=== PATIENT | female | born 1945 | race Caucasian/White ===

== ENCOUNTER 2020-08-06 16:09 | Emergency (ER) | payer MEDICARE, MEDICAID ==
[~2020-08-06] VITALS: Ht 162.6 cm; Wt 98.0 kg
[~2020-08-06 16:09] MED LIST: ACET650S12 PR; AMIO200T42 PO; CEFT1VIA13 IM; CIPR500T87 PO; DOCU240C53 PO; LEVE500T53 PO; LEVO75TA5 PO; METH125V16 IM; ONDA4TAB7 PO; SIMV20TA19 PO; SPIR25TA5 PO; WARF2TAB PO
--- NOTE | 2020-08-06 16:46 | NUR ---
PT UNCOOPERATIVE WITH ASSESMENT. PT BATTING THIS RN HAND AWAY AND SHOUTING "THIS IS RIDICULOUS" DURING PHYSICAL ASSESSMENT.
[2020-08-06] MEDS ORDERED: WARF3TAB52 PO (16:59)
--- NOTE | 2020-08-06 17:03 | NUR ---
PT SITTING UP IN BED. NAD, VSS. PT DENIES NEEDS AT THIS TIME. FALL PRECAUTIONS IN PLACE, CALL LIGHT WITHIN REACH.
[2020-08-06] MEDS ORDERED: FAMO-79 PO (17:11)
[2020-08-06] MEDS ORDERED: LEVE500T22 PO (17:11)
[2020-08-06] MEDS ORDERED: ASCO500T8 PO (17:11)
[2020-08-06] MEDS ORDERED: CHOL10003 PO (17:11)
[2020-08-06] MEDS ORDERED: SERT100T PO (17:11)
[2020-08-06] MEDS ORDERED: ZINC PO (17:11)
[2020-08-06] MEDS ORDERED: ACET325T14 PO (17:11)
--- NOTE | 2020-08-06 18:00 | NUR ---
PT SITTING UPRIGHT IN BED PLAYING WATCHING TV. PT PROVIDED A PILLOW FOR HER RIGHT ARM PER REQUEST. PT DENIES ANY NEEDS AT THIS TIME AND HAS BECOME MORE COOPERATIVE WITH STAFF. CALL LIGHT WITHIN REACH AND FALL PRECAUTIONS IN PLACE. WILL CONTINUE TO MONITOR.
[2020-08-06 18:10] LABS: BASOPHILS # (AUTO) 0.02 x10^3/uL (0-0.1); BASOPHILS % (AUTO) 0 % (0-1); EOSINOPHILS # (AUTO) 0.24 x10^3/uL (0-0.4); EOSINOPHILS % (AUTO) 4 % (1-7); LYMPHOCYTES # (AUTO) 0.85 x10^3/uL (1-3.4); LYMPHOCYTES % (AUTO) 14 % (22-44); MD NO; MEAN CORPUSCULAR HEMOGLOBIN 30.8 pg (27.0-34.8); MEAN PLATELET VOLUME 9.2 fL (7.4-10.4); MONOCYTES # (AUTO) 0.86 x10^3/uL (0.2-0.8); MONOCYTES % (AUTO) 14 % (2-9); NEUTROPHILS # (AUTO) 4.31 x10^3/uL (1.8-6.8); NEUTROPHILS % (AUTO) 69 % (42-75); PLATELET COUNT 177 x10^3/uL (130-400); RED BLOOD COUNT 4.95 x10^6/uL (3.82-5.3); RED CELL DISTRIBUTION WIDTH 15.2 % (9.6-15.2)
[2020-08-06 18:18] LABS: ALANINE AMINOTRANSFERASE 34 U/L (12-78); ALBUMIN 2.7 g/dL (3.4-5.0); ANION GAP 5 mmol/L (5-15); CALCIUM 8.6 mg/dL (8.5-10.1); CHLORIDE 105 mmol/L (98-107); CREATININE 0.85 mg/dL (0.55-1.02)
[2020-08-06 18:25] LABS: ALKALINE PHOSPHATASE 85 U/L (45-117); BILIRUBIN,TOTAL 0.3 mg/dL (0.2-1.0); C-REACTIVE PROTEIN, QUANT 2.23 mg/dL (0.02-0.49); TOTAL PROTEIN 7.2 g/dL (6.4-8.2)
--- NOTE | 2020-08-06 18:55 | NUR ---
BEDSIDE REPORT GIVEN TO ARRON FOOTE.
--- NOTE | 2020-08-06 20:20 | NUR ---
PT WAS DISCHARGED PT PROVIDER TO BE SENT BACK [facility]. ANASTACIO CALLED BY UN[facility] DIGESTER OPERATOR WHO ACCEPTED PT TO COME BACK TO THEIR FACILITY. WITH TRANSPORTATION ARRANGED AFTER
[2020-08-06 20:32] VITALS: BP 135/52
--- NOTE | 2020-08-06 22:48 | NUR ---
RN RECIEVED CALL FROM ANASTACIO NURSE SAYING "THAT THEY DID NOT KNOW THAT PT STILL HAD A PENDING COVID RESULT AND THAT THEY ARE IN COVID MODE AND THAT PT WAS SENT OUT TO GET CLEARED AND ASKED IF WE CAN JUST KEEP PT OVERNIGHT" RN EXPLAINED THAT PT CAME TO ER WITHOUT ANY COVID SYMTOMS AND FACILITY RN SAID "THAT PT HAD A FEVER THIS MORNING AND THAT HER B/P IS HIGH AND WE SHOULD KEEP HER" ANASTACIO FOOTE KEPT TRYING TO CHANGE STORY TO GET US TO KEEP PT OVERNIGHT. RN HANDED PHONE TO [facility]HE AND PROVIDER NOTIFIED. ANASTACIO FOOTE AGREED TO KEEP PT AND PUT PT IN ONE OF THEIR ISOLATION ROOMS
== END 2020-08-06 22:03 | disposition home or self-care (01) ==
LOC: ED 16:39
DX: U07.1 COVID-19 (principal); R50.9 Fever, unspecified; I48.91 Unspecified atrial fibrillation; J44.9 Chronic obstructive pulmonary disease, unspecified; Z86.73 Personal history of transient ischemic attack (TIA), and cerebral infarction without residual deficits
CPT/HCPCS: 36415; 71045; 80053; 83605; 84145; 85025; 86140; 87635; 93005; 99285